=== PATIENT | male | born 1990 | race African-American/Black ===

== ENCOUNTER 2016-05-08 01:58 | Emergency (ER) | payer OTHER, MEDICAID ==
[2016-05-08 02:13] VITALS: BP 135/80
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
== END 2016-05-08 02:50 | disposition home or self-care (01) ==
LOC: ER 01:58
DX: S00.83XA Contusion of other part of head, initial encounter (principal); S06.0X0A Concussion without loss of consciousness, initial encounter; Y04.8XXA Assault by other bodily force, initial encounter; Y92.512 Supermarket, store or market as the place of occurrence of the external cause; Y99.0 Civilian activity done for income or pay; Z85.830 Personal history of malignant neoplasm of bone

== ENCOUNTER 2016-05-10 03:50 | Emergency (ER) | payer OTHER, MEDICAID ==
[2016-05-10 04:00] VITALS: BP 138/72
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
== END 2016-05-10 04:50 | disposition home or self-care (01) ==
LOC: ER 03:50
DX: S06.0X0D Concussion without loss of consciousness, subsequent encounter (principal)